=== PATIENT | male | born 1960 | race Two or more races ===

== ENCOUNTER 2025-01-07 14:00 | Inpatient (IN) | payer OTHER ==
[~2025-01-07] VITALS: Ht 182.9 cm; Wt 127.0 kg
[2025-01-07] MEDS ORDERED: CRESTOR40 MG PO (15:06)
[2025-01-07] MEDS ORDERED: ENTRESTO 24 MG1 EACH PO (15:06)
[2025-01-07] MEDS ORDERED: ALDACTONE25 MG PO (15:06)
[2025-01-07] MEDS ORDERED: TOPROL XL25 M1 PO (15:06)
[2025-01-07] MEDS ORDERED: PLAVIX75 MG PO (15:07)
[2025-01-07] MEDS ORDERED: VAZALORE81 MG PO (15:07)
[2025-01-07] MEDS ORDERED: LASIX20 MG PO (15:07)
[2025-01-07] MEDS ORDERED: ANASTROZOLE1 MG PO (15:07)
[2025-01-07] MEDS ORDERED: JARDIANCE10 MG PO (15:07)
[2025-01-07] MEDS ORDERED: PROPECIA1 MG PO (15:07)
[2025-01-07] MEDS ORDERED: METFORMIN HCL1000 M2 PO (15:07)
[2025-01-07] MEDS ORDERED: MONTELUKAST SODI4 M1 PO (15:08)
[2025-01-07] MEDS ORDERED: OZEMPIC0.25 MG/02 (15:08)
[2025-01-07] MEDS ORDERED: LIPOFEN150 MG PO (15:08)
--- NOTE | 2025-01-07 15:13 | NUR ---
PACIENTE ALERTA Y ORIENTADA X3. REFIERE VENIR POR DOLOR ABDOMINAL DESDE HACEN VARIOS JURADO, DIARREA INTERMITENTE Y SENSACION DE LLENADO. SE ESTIMAN VITALES Y SE UBICA.
[2025-01-07] MEDS ORDERED: SODIUM CHLORIDE 0.45 % 1,000 ML IV SCH (16:45)
[2025-01-07] MEDS ORDERED: FAMOTIDINE/PF 20 MG in 0.9 % SODIUM CHLORIDE 8 ML IV PUSH STA (16:45)
[2025-01-07] MEDS ORDERED: DIATRIZOATE MEGLUMINE, SODIUM 30 ML BOTTLE PO ONE (16:45)
--- NOTE | 2025-01-07 17:13 | NUR ---
SHARMIN BRAXTON ORIENTA PTE SOBRE TX A SEGUIR, EL MISMO REFIERE ENTENDER. EH MUESTRA DE LAB, CANALIZA Y ADMINISTRA MED ANGELIKA ORDEN MEDICA
[2025-01-07 17:14] LABS: HEMATOCRIT 40.2 % (39.0-48.0); HEMOGLOBIN 13.6 g/dL (13-16.00); MEAN CELL VOLUME 95.2 fL (80.0-100.00); MEAN CORPUSCULAR HEMOGLOBIN 32.2 pg (27.00-32.0); MEAN CORPUSCULAR HGB CONC 33.8 g/dl (32.0-36.0); PLATELET COUNT 237 K/uL (150-450); RED BLOOD COUNT 4.23 M/uL (4.00-6.00); RED CELL DISTRIBUTION WIDTH 14.7 % (11.5-14.5)
[2025-01-07 17:45] LABS: ALBUMIN 2.8 gm/dL (3.4-5.0); BILIRUBIN TOTAL 0.5 mg/dL (0.3-1.2); BILIRUBIN,CONJUGATED 0.23 mg/dL (0.0-0.2); BILIRUBIN,UNCONJUGATED 0.27 mg/dL (0.0-0.6); CALCIUM 9.3 mg/dL (8.5-10.1); CREATININE SERUM 1.1 mg/dL (0.70-1.30); GFR 67.39; GLOBULINA 4.3 G/DL (2.4-3.5); POTASSIUM 4.08 mEq/L (3.5-5.1); TOTAL PROTEIN 7.1 gm/dL (6.4-8.2)
[2025-01-07] MEDS ORDERED: ACETAMINOPHEN 500 MG GEL..CAP PO PRN (23:15)
[2025-01-07] MEDS ORDERED: DEXTROSE 50 % IN WATER 0.5 G/ML DISP.SYRIN IV PRN (23:15)
[2025-01-07] MEDS ORDERED: 0.9 % SODIUM CHLORIDE 1,000 ML IV SCH (23:15)
[2025-01-07] MEDS ORDERED: INSULIN LISPRO 1,000 UNIT/10 ML UNITS SUBCUTANEO PRN (23:15)
[2025-01-08] MEDS ORDERED: PIPERACILLIN/TAZOBACTAM SODIUM 3.375 GM in DEXTROSE 5 % IN WATER 100 ML IV SCH
[2025-01-08 01:36] LABS: INR 1.75; PARTIAL THROMBOPLASTIN TIME 31.6 SECONDS (22.0-34.0)
[2025-01-08 01:41] LABS: PROTHROMBIN TIME 18.3 SECONDS (9.0-11.5)
[2025-01-08 01:50] LABS: URINE APPEARANCE Clear; URINE BILIRRUBIN Negative (NEGATIVE); URINE BLOOD Negative; URINE COLOR Yellow; URINE KETONE Negative (NEGATIVE); URINE LEUKOCYTE Negative; URINE NITRATE Negative; URINE PROTEIN Negative (NEGATIVE)
[2025-01-08 01:53] LABS: URINE EPITHELIAL CELLS 1.4 uL (0.0-38.8); URINE RBC 2.2 uL (0.0-20.8)
[2025-01-08 02:07] VITALS: BP 103/61; O2SAT 99
[2025-01-08 03:14] LABS: URINE BACTERIA 2.4 uL (0.0-1933); URINE GLUCOSE >=1000 MG/DL (NEGATIVE); URINE WBC 0.7 uL (0.0-23.2)
[2025-01-08 05:32] LABS: HEMATOCRIT 39.5 % (39.0-48.0); HEMOGLOBIN 13.3 g/dL (13-16.00); MEAN CELL VOLUME 95.1 fL (80.0-100.00); MEAN CORPUSCULAR HGB CONC 33.6 g/dl (32.0-36.0); PLATELET COUNT 240 K/uL (150-450); RED BLOOD COUNT 4.15 M/uL (4.00-6.00); RED CELL DISTRIBUTION WIDTH 14.6 % (11.5-14.5)
[2025-01-08 07:51] VITALS: BP 96/71
[2025-01-08] MEDS ORDERED: METOPROLOL SUCCINATE 100 MG TAB.SR.24H PO SCH (09:00)
[2025-01-08] MEDS ORDERED: FUROsemide 20 MG TABLET PO SCH (09:00)
[2025-01-08] MEDS ORDERED: FINASTERIDE 5 MG TABLET PO SCH (09:00)
[2025-01-08] MEDS ORDERED: SPIRONOLACTONE 25 MG TABLET PO SCH (09:00)
[2025-01-08] MEDS ORDERED: FENOFIBRATE 160 MG PO SCH (09:00)
[2025-01-08] MEDS ORDERED: ENTRESTO 24 MG/26 MG PO SCH (09:00)
[2025-01-08] MEDS ORDERED: ENOXAPARIN SODIUM 100 MG/ML SYRINGE SUBCUTANEO SCH (09:00)
[2025-01-08] MEDS ORDERED: MONTELUKAST SODIUM 10 MG TABLET PO SCH (17:00)
[2025-01-08] MEDS ORDERED: ROSUVASTATIN CALCIUM 10 MG TABLET PO SCH (17:00)
== END 2025-01-08 16:54 | disposition home or self-care (01) | DRG 439 ==
LOC: ER 14:02 → MEDJ 23:15
PROVIDERS: General Practice; ADMIT Internal Medicine; ATTEND Internal Medicine
PROC: BW21ZZZ Computerized Tomography (CT Scan) of Abdomen and Pelvis (ICD-10-PCS; principal; 2025-01-07)
DX: K85.90 Acute pancreatitis without necrosis or infection, unspecified (principal); K86.2 Cyst of pancreas; K86.89 Other specified diseases of pancreas; R10.9 Unspecified abdominal pain